=== PATIENT | male | born 1960 | race Caucasian/White ===

== ENCOUNTER 2018-02-18 14:56 | Outpatient (REF) | payer MEDICAID, SELFPAY ==
[2018-02-18 22:50] LABS: COMMENT (LAB VIEW ONLY) 70.68 mg/dL; Microalb ug/mg Crea 48.5 ug/mg Cr
== END 2018-02-18 15:16 ==
LOC: NCHCN 14:56
PROVIDERS: PCP Family Medicine; Visit Provider Registered Nurse
DX: R80.9 Proteinuria, unspecified (principal)
CPT/HCPCS: 82043; 82570

== ENCOUNTER 2018-07-19 15:36 | Outpatient (REF) | payer MEDICAID, SELFPAY ==
[2018-07-19 20:48] LABS: Anion Gap 7.2 mmol/L (3-11); BUN 7 mg/dL (7-18); CO2 27.8 mmol/L (21.0-32.0); CREATININE 0.49 mg/dL (0.70-1.30); Calcium 8.3 mg/dL (8.5-10.1); Chloride 103 mmol/L (98-107); Glucose 113 mg/dL (70-100); Potassium 3.7 mmol/L (3.5-5.1); Sodium 138 mmol/L (136-145)
== END 2018-07-19 15:56 ==
LOC: NCHCN 15:36
PROVIDERS: PCP Family Medicine; Visit Provider Registered Nurse
DX: E11.9 Type 2 diabetes mellitus without complications (principal); R60.0 Localized edema
CPT/HCPCS: 80048